=== PATIENT | male | born 1985 | race Caucasian/White ===

== ENCOUNTER 2017-01-25 18:53 | Emergency (ER) | payer MEDICAID, OTHER ==
[2017-01-25 19:01] VITALS: BMI 24.3
[2017-01-25 19:09] VITALS: TEMP 98.3
--- NOTE | 2017-01-25 19:38 | ED PDOC ---
Arrival/HPI - General Chief Complaint: Dizziness/Lightheaded Time Seen by Provider: 01/25/17 19:25 Historian: Patient - History of Present Illness Narrative History of Present Illness (Text): 01/25/17 19:37 A 31 year old male, who denies any past medical history, presents to the emergency department complaining of dizziness for 1 week. Patient describes it as an occasional room spinning sensation. Patient denies any head trauma, headache, visual disturbances, fever, chills, nausea, vomiting, abdominal pain, chest pain, shortness of breath or any other complaints. Time/Duration: 1 week Symptom Course: Unchanged Quality: Other Context: Home Past Medical History - Provider Review Nursing Documentation Reviewed: Yes - Travel History If Yes, travel location?: [place], [place] - Tetanus Immunization Tetanus Immunization: Unknown - Past Medical History Past Medical History: No Previous - Cardiac Hx Cardiac Disorders: No - Psychiatric Hx Depression: No Hx Emotional Abuse: No Hx Physical Abuse: No Hx Substance Use: No - Past Surgical History Past Surgical History: No Previous - Anesthesia Hx Anesthesia: No - Suicidal Assessment Feels Threatened In Home Enviroment: No Family/Social History - Physician Review Nursing Documentation Reviewed: Yes Family/Social History: No Known Family HX Smoking Status: Never Smoked Hx Alcohol Use: No Hx Substance Use: No Hx Substance Use Treatment: No Allergies/Home Meds Allergies/Adverse Reactions: Allergies chlorpheniramine Allergy (Verified 01/25/17 19:03) REDNESS phenylephrine Allergy (Verified 01/25/17 19:03) REDNESS Review of Systems - Physician Review All systems were reviewed & negative as marked: Yes - Review of Systems Constitutional: absent: Fevers, Night Sweats Eyes: absent: Vision Changes Respiratory: absent: SOB Cardiovascular: absent: Chest Pain Gastrointestinal: absent: Abdominal Pain, Nausea, Vomiting Neurological: Dizziness. absent: Headache Physical Exam Vital Signs Reviewed: Yes Vital Signs Temp Pulse Resp BP Pulse Ox 01/25/17 22:00 66 14 128/81 100 01/25/17 19:09 98.3 F 01/25/17 19:07 84 16 123/84 97 Temperature: Afebrile Blood Pressure: Normal Pulse: Regular Respiratory Rate: Normal Appearance: Positive for: Well-Appearing, Non-Toxic, Comfortable Pain Distress: None Mental Status: Positive for: Alert and Oriented X 3 Finger Stick Blood Glucose: 106 - Systems Exam Head: Present: Atraumatic, Normocephalic Pupils: Present: PERRL Extroacular Muscles: Present: EOMI Conjunctiva: Present: Normal Ears: Present: NORMAL TM Mouth: Present: Moist Mucous Membranes Pharnyx: No: ERYTHEMA, EXUDATE, TONSILS ENLARGED Neck: Present: Normal Range of Motion Respiratory/Chest: Present: Clear to Auscultation, Good Air Exchange. No: Respiratory Distress, Accessory Muscle Use Cardiovascular: Present: Regular Rate and Rhythm, Normal S1, S2. No: Murmurs Abdomen: Present: Normal Bowel Sounds. No: Tenderness, Distention, Peritoneal Signs Back: Present: Normal Inspection Upper Extremity: Present: Normal Inspection. No: Cyanosis, Edema Lower Extremity: Present: Normal Inspection. No: Edema Neurological: Present: GCS=15, CN II-XII Intact, Speech Normal, Motor Func Grossly Intact, Normal Sensory Function, Normal Cerebellar Funct, Memory Normal Skin: Present: Warm, Dry, Normal Color. No: Rashes Psychiatric: Present: Alert, Oriented x 3, Normal Insight, Normal Concentration Medical Decision Making ED Course and Treatment: 01/25/17 19:37 Impression: A 31 year old male with dizziness. Physical exam unremarkable. Plan: -- Head CT -- EKG -- Labs -- Antivert -- Reassess and disposition Progress Notes: 01/25/17 21:00 EKG: Ordered, reviewed, and independently interpreted the EKG. Rate : 74 BPM Rhythm : NSR Interpretation : No ST-segment elevations or depressions, normal intervals. CT Head Without Intravenous Contrast FINDINGS: Brain: Ventricles are normal in size and configuration. There is no midline shift. There are no intraaxial or extra-axial mass lesions or areas of hemorrhage. There are no abnormal fluid collections. Medina-white differentiation is maintained. Ventricles: See above. Bones: Cranial vault is intact. Soft tissues: unremarkable Sinuses: There is no acute sinusitis. There is a small retention cyst/polyp in the left maxillary sinus Ears and mastoids: Middle ears and mastoids are unremarkable Orbits: Orbital contents are unremarkable. IMPRESSION: No acute intracranial abnormality Dictated and Authenticated by: Kayley Roberts MD 01/25/2017 10:02 PM Eastern Time ([place] & [place]) - Lab Interpretations Lab Results: 01/25/17 21:22 01/25/17 21:22 Lab Results 01/25/17 21:22: WBC 6.2, RBC 5.08, Hgb 14.9, Hct 42.2, MCV 83.1, MCH 29.3, MCHC 35.3, RDW 11.9, Plt Count 258, MPV 9.9 01/25/17 21:22: Sodium 141, Potassium 4.3, Chloride 101, Carbon Dioxide 30, Anion Gap 14, BUN 19, Creatinine 1.0, Est GFR ( Amer) > 60, Est GFR (Non- Af Amer) > 60, Random Glucose 106, Calcium 9.4, Total Bilirubin 0.6, AST 50, ALT 94 H, Alkaline Phosphatase 48, Lactate Dehydrogenase 447, Total Creatine Kinase 260 H, CK-MB (CK-2) 0.6, CK-MB (CK-2) % Cancelled, Troponin I < 0.01, Total Protein 8.2, Albumin 4.9 H, Globulin 3.3, Albumin/Globulin Ratio 1.5 - RAD Interpretation Narrative RAD Interpretations (Text): 01/25/17 22:26 CT Head-IMPRESSION: No acute intracranial abnormality Radiology Orders: 01/25/17 19:35 HEAD W/O CONTRAST [CT] Stat Mechanical Operator: Radiologist - Medication Orders Current Medication Orders: Discontinued Medications Meclizine HCl (Antivert) 25 mg PO STAT STA Stop: 01/25/17 19:37 Last Admin: 01/25/17 22:41 Dose: 25 mg - Scribe Statement The provider has reviewed the documentation as recorded by the Rohit Ware Provider Scribe Attestation: All medical record entries made by the Rohit were at my direction and personally dictated by me. I have reviewed the chart and agree that the record accurately reflects my personal performance of the history, physical exam, medical decision making, and the department course for this patient. I have also personally directed, reviewed, and agree with the discharge instructions and disposition. Disposition/Present on Arrival - Present on Arrival Any Indicators Present on Arrival: No History of DVT/PE: No History of Uncontrolled Diabetes: No Urinary Catheter: No History of Decub. Ulcer: No History Surgical Site Infection Following: None - Disposition Have Diagnosis and Disposition been Completed?: Yes Diagnosis: Labyrinthitis Disposition: HOME/ ROUTINE Disposition Time: 22:52 Patient Plan: Discharge Condition: GOOD Discharge Instructions (ExitCare): Labyrinthitis (ED) Additional Instructions: Take meds as prescribed/follow up with your doctor this week Prescriptions: Meclizine [Meclizine*] 25 mg PO Q6 PRN #20 tab PRN Reason: Dizziness Forms: [employer] (Turkish)
[2017-01-25 21:38] LABS: HEMATOCRIT 42.2 % (42.0-52.0); MEAN CELL VOLUME 83.1 fl (80.0-105.0); MEAN CORPUSCULAR HEMOGLOBIN 29.3 pg (25.0-35.0); MEAN CORPUSCULAR HGB CONC 35.3 g/dl (31.0-37.0); MEAN PLATELET VOLUME 9.9 fl (7.0-11.0); RED CELL DISTRIBUTION WIDTH 11.9 % (11.5-14.5); WHITE BLOOD COUNT 6.2 10^3/ul (4.5-11.0)
[2017-01-25 21:44] LABS: ALB/GLOB RATIO 1.5 (1.1-1.8); ALKALINE PHOSPHATASE 48 U/L (38-126); ALT/SGPT 94 U/L (7-56); AST/SGOT 50 U/L (17-59); BILIRUBIN,TOTAL 0.6 mg/dL (0.2-1.3); BLOOD UREA NITROGEN 19 mg/dL (7-21); CALCIUM 9.4 mg/dL (8.4-10.5); CARBON DIOXIDE 30 mmol/L (21-33); CHLORIDE 101 mmol/L (98-107); GFR AFRICAN-AMERICAN > 60; GLUCOSE,RANDOM 106 mg/dL (70-110); POTASSIUM 4.3 mmol/L (3.6-5.0); SODIUM 141 mmol/L (132-148); TOTAL PROTEIN 8.2 g/dL (5.8-8.3)
--- NOTE | 2017-01-25 22:03 | CT ---
EXAM: CT Head Without Intravenous Contrast EXAM DATE/TIME: 01/25/2017 7:35 PM CLINICAL HISTORY: 31 years old, male; Signs and symptoms; Dizziness; Additional info: Dizzy TECHNIQUE: Axial computed tomography images of the head/brain without intravenous contrast. All CT scans at this facility use one or more dose reduction techniques, viz.: automated exposure control; ma/kV adjustment per patient size (including targeted exams where dose is matched to indication; i.e. head); or iterative reconstruction technique. COMPARISON: There are no prior studies for comparison. FINDINGS: Brain: Ventricles are normal in size and configuration. There is no midline shift. There are no intra-axial or extra-axial mass lesions or areas of hemorrhage. There are no abnormal fluid collections. Medina-white differentiation is maintained. Ventricles: See above. Bones: Cranial vault is intact. Soft tissues: unremarkable Sinuses: There is no acute sinusitis. There is a small retention cyst/polyp in the left maxillary sinus Ears and mastoids: Middle ears and mastoids are unremarkable Orbits: Orbital contents are unremarkable. IMPRESSION: No acute intracranial abnormality
[2017-01-25 22:04] LABS: TROPONIN I < 0.01 ng/mL
[2017-01-25 22:13] VITALS: BP 128/81; PULSE 66; RESP 14; O2SAT 100
--- NOTE | 2017-01-27 10:24 | CARD ---
APPROVED REPORT EKG Measurement Heart [id number] [place] [id number] <Conclusion> Normal sinus rhythm Normal ECG
== END 2017-01-25 23:04 | disposition home or self-care (01) ==
LOC: ED 18:53
DX: H83.09 Labyrinthitis, unspecified ear (principal)